=== PATIENT | female | born 1955 | race Caucasian/White ===

== ENCOUNTER → 2016-12-23 | Outpatient (CLI) | payer OTHER ==
--- NOTE | 2016-12-23 09:10 | DI ---
Indication: ITS.REASON: C64.1 Malignant neoplasm of right kidney, except renal pelvis PROCEDURE: CT CHEST/ABDOMEN/PELVIS W/O: Encounter: Subsequent Comparison: CT chest, abdomen and pelvis dated June 04, 2016 Technique: Axial CT images were performed through the chest, abdomen and pelvis without intravenous contrast. Coronal and sagittal two-dimensional reformats. Automated Exposure Control and Iterative Reconstruction dose reducing techniques were utilized. Findings: Chest: The lungs are stable and grossly clear. No consolidation, pleural effusion or pneumothorax. No new or enlarging pulmonary nodule. The central airways are patent. No axillary or mediastinal lymphadenopathy. Heart size is unchanged. No pericardial effusion. Moderate hiatal hernia. Abdomen/pelvis: The liver, gallbladder, spleen, pancreas and adrenal glands are within normal limits. Left kidney is normal. 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 No abdominal or pelvic lymphadenopathy. Bladder is normal. Uterus and ovaries are unremarkable. No free fluid. No evidence of a bowel obstruction. Bone windows are stable. No worrisome lytic or blastic osseous lesions. Impression: Stable exam without evidence of metastatic disease in the chest, abdomen or pelvis. .
== END ==
LOC: IMA 08:32
PROVIDERS: ATTEND Internal Medicine Hematology & Oncology
DX: C64.1 Malignant neoplasm of right kidney, except renal pelvis (principal)